=== PATIENT | female | born 1985 | race Caucasian/White ===

== ENCOUNTER 2017-12-13 18:21 | Emergency (ER) | payer SELFPAY ==
[2017-12-13 18:41] VITALS: TEMP 98.3; BMI 30.2
--- NOTE | 2017-12-13 18:44 | PDOC ---
Rapid Medical Evaluation Chief Complaint: Vaginal Bleeding Time Seen by Provider: 12/13/17 18:35 Medical Evaluation: Allergies Allergy/AdvReac Type Severity Reaction Status Date / Time ibuprofen [From Motrin] Allergy Verified 03/29/16 19:54 12/13/17 18:38 I have performed a brief in-person evaluation of this patient Patient presents with a chief complaint of vaginal bleeding in . She took a home test yesterday and found out she was . No care yet. LMP Nov 25 Also w/o lower abdominal pain Pertinent physical exam findings: NAD, unlabored breathing I have ordered the following: CBC, CMP, UA, UCG, Ucx, type and screen, transvaginal sono Patient will proceed to the ED for further medical evaluation Discharge Disposition - Diagnosis Vaginal bleeding affecting early - Referrals - Patient Instructions - Post Discharge Activity
[2017-12-13 19:37] LABS: HCG,QUALITATIVE URINE Positive
[2017-12-13 19:41] LABS: URINE APPEARANCE CLEAR; URINE BILIRUBIN NEGATIVE (<2.0 mg/dL); URINE COLOR STRAW; URINE GLUCOSE (UA) NEGATIVE (NEGATIVE); URINE KETONE NEGATIVE (NEGATIVE); URINE LEUK ESTERASE NEGATIVE (NEGATIVE); URINE NITRITE NEGATIVE (NEGATIVE); URINE PROTEIN NEGATIVE (NEGATIVE); URINE UROBILINOGEN NEGATIVE mg/dL (0.2-1.0)
[2017-12-13 19:43] LABS: EPI CELLS RARE /HPF (FEW)
--- NOTE | 2017-12-13 19:44 | PDOC ---
Attending Attestation - HPI HPI: 12/13/17 21:30 The patient is a 32 year female, , positive test presents to the emergency department with vaginal bleeding and abdominal pain. The patient presents with lower abdominal pain with small vaginal bleeding. The patient reports she bleed through 2 pads today. Denies fever, chills, dysuria, frequency or urgency to urinate. The patient reports her prior ended Allergies: Ibuprofen. Social history: No past or present use of tobacco, alcohol or recreational drug use reported. LMP: October 25, 2017. PCP: Ramya Carreon - Physicial Exam PE: 12/13/17 21:31 GENERAL: The patient is in no acute distress. HEAD: Normal with no signs of trauma. ENT: Ears normal, nares patent, oropharynx clear without exudates. Moist mucous membranes. NECK: Normal range of motion, supple without lymphadenopathy, JVD, or masses. LUNGS: Breath sounds equal, clear to auscultation bilaterally. No wheezes, and no crackles. HEART:Regular rate and rhythm, normal S1 and S2 without murmur, rub or gallop. ABDOMEN: Soft, nontender, normoactive bowel sounds. No guarding, no rebound. No masses palpable. EXTREMITIES: Normal range of motion, no edema. No clubbing or cyanosis. No erythema, or tenderness. NEUROLOGICAL: Cranial nerves II through XII grossly intact. Normal speech. No focal neurological deficits. Pelvic exam: Agree with resident. MUSCULOSKELETAL: Back non-tender to palpation, no CVA tenderness SKIN: Warm, Dry, normal turgor, no rashes or lesions noted. - Medical Decision Making 12/13/17 21:31 Documentation prepared by Ayana Horner, acting as medical management trainer for Guerline Elizabeth MD. <Ayana Horner - Last Filed: 12/13/17 21:30> - Resident Resident Name: Kemar Watson - ED Attending Attestation I have performed the following: I have examined & evaluated the patient, The case was reviewed & discussed with the resident, I agree w/resident's findings & plan, Exceptions are as noted - Medical Decision Making 12/14/17 20:04 SONO done; shows IUP with goof FH. She will be asked to follow with [facility]; no need for rhogam 12/14/17 20:07 Pt is stable for discharge <Guerline Elizabeth - Last Filed: 12/14/17 20:07>
[2017-12-13 20:25] LABS: BASO % 0.4 % (0-2.0); EOS % 0.5 % (0-4.5); HEMATOCRIT 37.8 % (32.4-45.2); HEMOGLOBIN 12.4 GM/dL (10.7-15.3); LYMPH % 31.5 % (8-40); MCH 28.7 pg (25.7-33.7); MEAN CELL VOLUME 86.9 fl (80-96); MEAN PLT VOLUME 9.2 fl (7.5-11.1); MONO % 7.7 % (3.8-10.2); NEUT % 59.9 % (42.8-82.8); PLATELET COUNT 225 K/MM3 (134-434); RBC 4.34 M/mm3 (3.60-5.2); RDW 13.8 % (11.6-15.6); WHITE BLOOD COUNT 12.1 K/mm3 (4.0-10.0)
--- NOTE | 2017-12-13 20:34 | PDOC ---
History of Present Illness - General Chief Complaint: Vaginal Bleeding Stated Complaint: VAGINAL BLEEDING Time Seen by Provider: 12/13/17 18:35 History Source: Patient Exam Limitations: No Limitations - History of Present Illness Initial Comments: 12/13/17 20:24 Patient is a 32F here today complaining of vaginal bleeding and lower abdominal pain that started today after finding out she was yesterday. LMP 10/25. Patient states she used 2 pads. Denies fevers, chills, nausea, vomiting. Patient has no OB. Denies dysuria, flank pain, prior abdominal surgeries. No constipation or diarrhea. Patient denies history of gonorrhea, chlamydia and HIV. Past History - Past Medical History Allergies/Adverse Reactions: Allergies Allergy/AdvReac Type Severity Reaction Status Date / Time ibuprofen [From Motrin] Allergy Verified 03/29/16 19:54 Home Medications: Ambulatory Orders Cephalexin [Keflex] 500 mg PO BID #10 capsule 03/29/16 Phenazopyridine HCl [Pyridium] 200 mg PO TID PRN #6 tablet 03/29/16 COPD: No - Suicide/Smoking/Psychosocial Hx Smoking History: Never smoked Review of Systems - Review of Systems Comments:: 12/13/17 20:34 GENERAL/CONSTITUTIONAL: No fever or chills. No weakness. HEAD, EYES, EARS, NOSE AND THROAT: No change in vision. No sore throat. CARDIOVASCULAR: No chest pain or shortness of breath RESPIRATORY: No cough, wheezing, or hemoptysis. GASTROINTESTINAL: No nausea, vomiting, diarrhea or constipation. GENITOURINARY: No dysuria, frequency, or change in urination. MUSCULOSKELETAL: No joint or muscle swelling or pain. No neck or back pain. SKIN: No rash NEUROLOGIC: No headache, vertigo, loss of consciousness, or change in strength/ sensation. ENDOCRINE: No increased thirst. No abnormal weight change HEMATOLOGIC/LYMPHATIC: No anemia, easy bleeding, or history of blood clots. ALLERGIC/IMMUNOLOGIC: No hives or skin allergy. *Physical Exam - Vital Signs Last Vital Signs Temp Pulse Resp BP Pulse Ox 98.3 F 56 L 18 109/64 100 12/13/17 18:34 12/13/17 18:34 12/13/17 18:34 12/13/17 18:34 12/13/17 18:34 - Physical Exam Comments: 12/13/17 20:34 GENERAL: Awake, alert, and fully oriented, in no acute distress PELVIC: Normal external genitalia, trace blood in vaginal vault, closed os, no CMT or adnexal tenderness. No masses appreciated. HEAD: No signs of trauma, normocephalic, atraumatic EYES: PERRLA, EOMI, sclera anicteric, conjunctiva clear ENT: Auricles normal inspection, hearing grossly normal, nares patent, oropharynx clear without exudates. Moist mucosa NECK: Normal ROM, supple, no lymphadenopathy, JVD, or masses LUNGS: No distress, speaks full sentences, clear to auscultation bilaterally HEART: Regular rate and rhythm, normal S1 and S2, no murmurs, rubs or gallops, peripheral pulses normal and equal bilaterally. ABDOMEN: Soft, nontender, normoactive bowel sounds. No guarding, no rebound. No masses EXTREMITIES: Normal inspection, Normal range of motion, no edema. No clubbing or cyanosis. NEUROLOGICAL: Cranial nerves II through XII grossly intact. Normal speech, normal gait, no focal sensorimotor deficits SKIN: Warm, Dry, normal turgor, no rashes or lesions noted. ED Treatment Course - LABORATORY CBC & Chemistry Diagram: 12/13/17 20:02 12/13/17 20:02 - ADDITIONAL ORDERS Additional order review: Laboratory Results 12/13/17 19:05 Urine Color Straw Urine Appearance Clear Urine pH 6.0 D Ur Specific [place] 1.006 L Urine Protein Negative Urine Glucose (UA) Negative Urine Ketones Negative Urine Blood 1+ H Urine Nitrite Negative Urine Bilirubin Negative Urine Urobilinogen Negative Ur Leukocyte Esterase Negative Urine WBC (Auto) None Urine RBC (Auto) None Ur Epithelial Cells Rare Urine HCG, Qual Positive Medical Decision Making - Medical Decision Making 12/13/17 20:35 Patient is 32F here today with vaginal bleeding. Pain is described as cramping. DDx includes, but is not limited to: , threatened ab, ectopic. Will evaluate with cbc, cmp, type and screen, tvus, beta quant. Urine preg + in triage. Likely discharge. 12/13/17 22:35 CBC normal. CMP reassuring. Blood type O+. Beta quant 10k. TVUS shows single live IUP at 6wk0d with HR of 105. Patient has threatened AB. Educated on how this may be normal part of her or the beginning of a miscarriage. Discharged with return precautions and PCP follow up. Pain has resolved. *DC/Admit/Observation/Transfer Diagnosis at time of Disposition: Vaginal bleeding affecting early , Threatened - Discharge Dispostion Disposition: HOME Condition at time of disposition: Good Decision to Admit order: No - Referrals Referrals: Ramya Carreon [Primary Care Provider] - Narendra Pond MD [Staff Physician] - [facility] [Provider Group] - Patient Instructions Printed Discharge Instructions: DI for Threatened Additional Instructions: Please follow up with OB for your . Please return if you have any new, worsening or concerning symptoms, especially pain, weakness, chest pain, and shortness of breath. - Post Discharge Activity
[2017-12-13 21:17] LABS: ALBUMIN 3.6 g/dl (3.4-5.0); ALK PHOS 78 U/L (45-117); ANION GAP 7 MMOL/L (8-16); BILIRUBIN,TOTAL 0.2 mg/dL (0.2-1); BLOOD UREA NITROGEN 11 mg/dL (7-18); CALCIUM 9.2 mg/dL (8.5-10.1); CHLORIDE 106 mmol/L (98-107); CO2 25 mmol/L (21-32); CREATININE 0.5 mg/dL (0.55-1.3); GLUCOSE,RANDOM 88 mg/dL (74-106); POTASSIUM 4.4 mmol/L (3.5-5.1); SGOT/AST 18 U/L (15-37); SGPT/ALT 26 U/L (13-61); SODIUM 137 mmol/L (136-145); TOT PROT 7.2 g/dl (6.4-8.2)
[2017-12-13 22:06] VITALS: BP 104/62; PULSE 61
== END 2017-12-13 22:44 | disposition home or self-care (01) ==
LOC: JER 18:21
DX: O26.891 Other specified pregnancy related conditions, first trimester (principal); O20.0 Threatened abortion; Z3A.01 Less than 8 weeks gestation of pregnancy
CPT/HCPCS: 36415; 76817-TC; 80053; 81003; 81015; 84702; 84703; 85025; 86850; 86900; 86901; 87086; 99283-25

== ENCOUNTER 2022-05-16 22:21 | Emergency (ER) | payer OTHER ==
[2022-05-16 22:28] VITALS: BP 125/72; PULSE 86; RESP 18; TEMP 97.9; BMI 27.0
[2022-05-16] MEDS ORDERED: METOCLOPRAMIDE HCL INJECTION 10 MG/2 ML VIAL IVPUSH ONE (23:18)
[2022-05-16] MEDS ORDERED: ACETAMINOPHEN 1000 MG/100 ML BAG IVPB ONE (23:18)
[2022-05-16] MEDS ORDERED: SODIUM CHLORIDE 0.9% 500 ML INFUS.BAG IV ONE (23:18)
[2022-05-16] MEDS ORDERED: METOCLOPRAMIDE HCL INJECTION 10 MG/2 ML VIAL ONE (23:53)
[2022-05-17 00:24] LABS: URINE APPEARANCE CLEAR; URINE BILIRUBIN NEGATIVE (NEGATIVE); URINE COLOR YELLOW; URINE GLUCOSE (UA) NEGATIVE (NEGATIVE); URINE KETONE NEGATIVE (NEGATIVE); URINE LEUK ESTERASE NEGATIVE (NEGATIVE); URINE NITRITE NEGATIVE (NEGATIVE); URINE PROTEIN NEGATIVE (NEGATIVE); URINE UROBILINOGEN 0.2 mg/dL (0.2-1.0)
[2022-05-17 00:25] LABS: BASO % 0.2 % (0-2.0); EOS % 0.4 % (0-4.5); HEMATOCRIT 36.8 % (32.4-45.2); HEMOGLOBIN 12.4 GM/dL (10.7-15.3); LYMPH % 9.7 % (8-40); MCH 28.2 pg (25.7-33.7); MCHC 33.6 g/dl (32.0-36.0); MEAN PLT VOLUME 8.4 fl (7.5-11.1); MONO % 6.8 % (3.8-10.2); NEUT % 82.9 % (42.8-82.8); PLATELET COUNT 224 10^3/uL (134-434); RBC 4.38 M/mm3 (3.60-5.2); RDW 13.7 % (11.6-15.6); WHITE BLOOD COUNT 9.1 K/mm3 (4.0-10.0)
[2022-05-17] MEDS ORDERED: ACETAMINOPHEN INJECTION 100 ML IVPB ONE (00:54)
[2022-05-17 01:25] LABS: ALBUMIN 3.1 g/dl (3.4-5.0); CALCIUM 8.4 mg/dL (8.5-10.1)
[2022-05-17 01:26] LABS: BLOOD UREA NITROGEN 8.6 mg/dL (7-18)
[2022-05-17 01:28] LABS: CREATININE 0.5 mg/dL (0.55-1.3)
[2022-05-17 01:30] LABS: BILIRUBIN,TOTAL 0.2 mg/dL (0.2-1); TOT PROT 6.8 g/dl (6.4-8.2)
[2022-05-17] MEDS ORDERED: methylPREDNISolone NA SUCC 125 MG/2 ML VIAL IVPUSH ONE (02:05)
[2022-05-17] MEDS ORDERED: methylPREDNISolone NA SUCC 125 MG/2 ML VIAL ONE (02:08)
== END 2022-05-17 03:10 | disposition home or self-care (01) ==
LOC: JER 22:21
PROC: 3E033NZ Introduction of Analgesics, Hypnotics, Sedatives into Peripheral Vein, Percutaneous Approach (ICD-10-PCS; principal; 2022-05-16)
DX: O26.891 Other specified pregnancy related conditions, first trimester (principal); R51.9 Headache, unspecified; Z3A.13 13 weeks gestation of pregnancy
CPT/HCPCS: 36415; 70450-TC; 70496-TC; 80053; 81003; 85025; 87086; 99284-25; Q9967

== ENCOUNTER 2022-07-01 19:24 | Emergency (ER) | payer OTHER ==
[2022-07-01 19:36] VITALS: BMI 24.5
[2022-07-01] MEDS ORDERED: ONDANSETRON 4 MG/2 ML VIAL IVPUSH ONE (19:56)
[2022-07-01] MEDS ORDERED: SODIUM CHLORIDE 0.9% 500 ML INFUS.BAG IV ONE (19:56)
[2022-07-01] MEDS ORDERED: ONDANSETRON 4 MG/2 ML VIAL ONE (20:13)
[2022-07-01 20:37] LABS: BASO % 0.2 % (0-2.0); EOS % 0.1 % (0-4.5); HEMATOCRIT 32.5 % (32.4-45.2); HEMOGLOBIN 11.3 GM/dL (10.7-15.3); MCH 29.7 pg (25.7-33.7); MCHC 34.8 g/dl (32.0-36.0); MEAN CELL VOLUME 85.6 fl (80-96); MEAN PLT VOLUME 8.3 fl (7.5-11.1); MONO % 3.8 % (3.8-10.2); NEUT % 81.9 % (42.8-82.8); PLATELET COUNT 221 10^3/uL (134-434); RDW 14.5 % (11.6-15.6); WHITE BLOOD COUNT 9.5 K/mm3 (4.0-10.0)
[2022-07-01 21:01] LABS: ALBUMIN 2.8 g/dl (3.4-5.0); BLOOD UREA NITROGEN 11.8 mg/dL (7-18); CALCIUM 8.9 mg/dL (8.5-10.1)
[2022-07-01 21:04] LABS: CREATININE 0.5 mg/dL (0.55-1.3)
[2022-07-01 21:06] LABS: BILIRUBIN,TOTAL 0.2 mg/dL (0.2-1); TOT PROT 6.3 g/dl (6.4-8.2)
[2022-07-01 22:56] VITALS: BP 103/55; PULSE 59; RESP 20; TEMP 97.7
== END 2022-07-01 22:45 | disposition home or self-care (01) ==
LOC: JER 19:24
PROC: 3E033NZ Introduction of Analgesics, Hypnotics, Sedatives into Peripheral Vein, Percutaneous Approach (ICD-10-PCS; principal; 2022-07-01)
DX: O99.352 Diseases of the nervous system complicating pregnancy, second trimester (principal); R51.9 Headache, unspecified; O21.9 Vomiting of pregnancy, unspecified; Z3A.20 20 weeks gestation of pregnancy; Z20.822 Contact with and (suspected) exposure to COVID-19
CPT/HCPCS: 0241U-QW; 36415; 80053; 83690; 85025; 99284-25

== ENCOUNTER 2022-11-16 03:40 | Inpatient (IN) | payer OTHER ==
[2022-11-16] MEDS: ELECTROLYTE-148 SOLN 1,000 ML IV SCH ×2 (06:00→11:00)
[2022-11-16 06:50] LABS: INR 0.9 (0.83-1.09); PROTHROMBIN TIME (PATIENT) 10.4 SEC (9.7-13.0)
[2022-11-16 06:53] LABS: BASO % 0.2 % (0-2.0); EOS % 0.3 % (0-4.5); HEMATOCRIT 33.4 % (32.4-45.2); HEMOGLOBIN 11.4 GM/dL (10.7-15.3); LYMPH % 28.3 % (8-40); MCH 29.1 pg (25.7-33.7); MEAN CELL VOLUME 85.6 fl (80-96); MEAN PLT VOLUME 8.7 fl (7.5-11.1); MONO % 8.1 % (3.8-10.2); NEUT % 63.1 % (42.8-82.8); PLATELET COUNT 208 10^3/uL (134-434); RDW 15.2 % (11.6-15.6); WHITE BLOOD COUNT 9.3 K/mm3 (4.0-10.0)
[2022-11-16 07:25] LABS: POTASSIUM 4.5 mmol/L (3.5-5.1)
[2022-11-16 07:26] LABS: CALCIUM 8.1 mg/dL (8.5-10.1)
[2022-11-16 07:27] VITALS: BMI 33.4
[2022-11-16 07:27] LABS: BLOOD UREA NITROGEN 10.8 mg/dL (7-18)
[2022-11-16 07:30] LABS: CREATININE 0.6 mg/dL (0.55-1.3)
[2022-11-16 09:33] LABS: RETICULOCYTES 1.86 % (0.5-1.5)
[2022-11-16] MEDS ORDERED: ACETAMINOPHEN 325 MG TABLET (FP) PO PRN (10:56)
[2022-11-16] MEDS ORDERED: CITRIC ACID/SODIUM CITRATE 30 ML UNIT-DOSE CUP PO ONE (11:00)
[2022-11-16 11:09] LABS: URIC ACID 3.4 mg/dL (2.6-7.2)
[2022-11-16] MEDS ORDERED: morphine SULFATE/PF 1 MG/2 ML (2cc Syringe - QUVA) ONE (11:21)
[2022-11-16] MEDS ORDERED: FENTANYL CITRATE/PF 50 MCG/ML VIAL ONE (11:21)
[2022-11-16] MEDS ORDERED: morphine SULFATE/PF 1 MG/2 ML (2cc Syringe - QUVA) EP ONE (11:35)
[2022-11-16] MEDS ORDERED: OXYTOCIN 10 UNITS/ML VIAL ONE (12:17)
[2022-11-16] MEDS ORDERED: ceFAZolin SODIUM 1 GM VIAL ONE (12:17)
[2022-11-16] MEDS ORDERED: ONDANSETRON 4 MG/2 ML VIAL ONE (12:17)
[2022-11-16] MEDS ORDERED: OXYTOCIN 20 UNITS in 0.9% NS 20 UNIT/1,000 ML INFUS.BAG IV ONE (12:37)
[2022-11-16] MEDS: OXYTOCIN 20 UNITS in 0.9% NS 20 UNIT/1,000 ML INFUS.BAG IV SCH ×2 (12:40→21:12)
[2022-11-16 12:41] LABS: VENOUS BASE EXCESS -3.8 mmol/L (-2-2); VENOUS PCO2 57.7 mmHg (38-52); VENOUS PH 7.245 (7.310-7.410)
[2022-11-16 12:47] LABS: ARTERIAL BLOOD GAS BASE EXCESS -5.4 mmol/L (-2-2)
[2022-11-16 12:54] LABS: ARTERIAL BLOOD GAS pH 7.127 (7.350-7.450)
[2022-11-16] MEDS ORDERED: ACETAMINOPHEN 1000 MG/100 ML BAG IVPB ONE (13:45)
[2022-11-16] MEDS ORDERED: ACETAMINOPHEN INJECTION 100 ML IVPB ONE (13:50)
[2022-11-16] MEDS ORDERED: ONDANSETRON 4 MG/2 ML VIAL IVPUSH PRN (17:12)
[2022-11-16] MEDS ORDERED: oxyCODONE HCL 5 MG TABLET PO ONE (17:13)
[2022-11-16] MEDS: ACETAMINOPHEN 1000 MG/100 ML BAG IVPB SCH (20:21)
[2022-11-17] MEDS: oxyCODONE HCL 5 MG TABLET PO PRN ×3 (00:25→17:51)
[2022-11-17] MEDS: SIMETHICONE 80 MG TAB.CHEW (FP) PO PRN ×2 (00:26→17:51)
[2022-11-17] MEDS: ACETAMINOPHEN 1000 MG/100 ML BAG IVPB SCH ×4 (01:38→21:04)
[2022-11-17 06:52] LABS: BASO % 0.3 % (0-2.0); EOS % 0.1 % (0-4.5); HEMATOCRIT 28.2 % (32.4-45.2); HEMOGLOBIN 9.4 GM/dL (10.7-15.3); LYMPH % 22.8 % (8-40); MCHC 33.3 g/dl (32.0-36.0); MEAN CELL VOLUME 87.3 fl (80-96); MEAN PLT VOLUME 9.3 fl (7.5-11.1); MONO % 8.1 % (3.8-10.2); NEUT % 68.7 % (42.8-82.8); PLATELET COUNT 186 10^3/uL (134-434); RBC 3.23 M/mm3 (3.60-5.2)
[2022-11-17] MEDS ORDERED: BISACODYL 10 MG SUPP.RECT RC PRN (10:56)
[2022-11-18] MEDS: SIMETHICONE 80 MG TAB.CHEW (FP) PO PRN ×3 (04:57→20:29)
[2022-11-18] MEDS: oxyCODONE HCL 5 MG TABLET PO PRN ×2 (04:58→20:32)
[2022-11-18] MEDS: ACETAMINOPHEN 325 MG TABLET (FP) PO PRN ×2 (08:22→15:34)
[2022-11-19] MEDS: ACETAMINOPHEN 325 MG TABLET (FP) PO PRN ×2 (04:59→10:31)
[2022-11-19 08:45] LABS: BASO % 0.3 % (0-2.0); EOS % 1.2 % (0-4.5); HEMATOCRIT 27.6 % (32.4-45.2); HEMOGLOBIN 9.2 GM/dL (10.7-15.3); LYMPH % 24.5 % (8-40); MCH 28.8 pg (25.7-33.7); MCHC 33.3 g/dl (32.0-36.0); MEAN CELL VOLUME 86.5 fl (80-96); MEAN PLT VOLUME 8.5 fl (7.5-11.1); MONO % 8.8 % (3.8-10.2); NEUT % 65.2 % (42.8-82.8); PLATELET COUNT 214 10^3/uL (134-434); RBC 3.19 M/mm3 (3.60-5.2); RDW 15.9 % (11.6-15.6); WHITE BLOOD COUNT 8.7 K/mm3 (4.0-10.0)
[2022-11-19 11:25] VITALS: BP 108/72; PULSE 74; RESP 17; TEMP 98.1
== END 2022-11-19 12:50 | disposition home or self-care (01) | DRG 540 ==
LOC: JDEL 03:40 → JLDR 05:45 → J3W 14:35
PROVIDERS: ADMIT Obstetrics & Gynecology; ATTEND Obstetrics & Gynecology
PROC: 10D00Z1 Extraction of Products of Conception, Low, Open Approach (ICD-10-PCS; principal; 2022-11-16)
DX: O48.0 Post-term pregnancy (principal); O34.219 Maternal care for unspecified type scar from previous cesarean delivery; Z3A.40 40 weeks gestation of pregnancy; Z37.0 Single live birth
CPT/HCPCS: 36415; 36600; 80048; 82803; 82977; 83010; 84450; 84460; 84550; 85025; 85032; 85045; 85610; 85730; 86780; 86850; 86900; 86901; 88307-TC; 94010

== ENCOUNTER 2023-01-28 19:20 | Emergency (ER) | payer OTHER ==
[2023-01-28 19:44] VITALS: RESP 18; BMI 28.5
[2023-01-28] MEDS ORDERED: METOCLOPRAMIDE HCL INJECTION 10 MG/2 ML VIAL IVPUSH ONE (20:26)
[2023-01-28] MEDS ORDERED: SODIUM CHLORIDE 1,000 ML IV STA (20:27)
[2023-01-28] MEDS ORDERED: METOCLOPRAMIDE HCL INJECTION 10 MG/2 ML VIAL ONE (20:30)
[2023-01-28] MEDS ORDERED: PROCHLORPERAZINE INJECTION 10 MG/2 ML VIAL IVPB ONE (21:36)
[2023-01-28] MEDS ORDERED: ACETAMINOPHEN INJECTION 100 ML IVPB ONE (21:43)
[2023-01-28] MEDS ORDERED: ACETAMINOPHEN 1000 MG/100 ML BAG IVPB ONE (22:00)
[2023-01-28 23:03] LABS: PH,URINE 5.5 (5.0-8.0); URINE APPEARANCE CLEAR; URINE BILIRUBIN NEGATIVE (NEGATIVE); URINE COLOR YELLOW; URINE GLUCOSE (UA) NEGATIVE (NEGATIVE); URINE KETONE NEGATIVE (NEGATIVE); URINE LEUK ESTERASE NEGATIVE (NEGATIVE); URINE NITRITE NEGATIVE (NEGATIVE); URINE PROTEIN NEGATIVE (NEGATIVE); URINE UROBILINOGEN 0.2 mg/dL (0.2-1.0)
[2023-01-29 00:58] VITALS: BP 124/95; PULSE 73; TEMP 97.6
== END 2023-01-29 01:09 | disposition home or self-care (01) ==
LOC: JER 19:20
PROC: 3E033NZ Introduction of Analgesics, Hypnotics, Sedatives into Peripheral Vein, Percutaneous Approach (ICD-10-PCS; principal; 2023-01-28)
PROC: 3E033GC Introduction of Other Therapeutic Substance into Peripheral Vein, Percutaneous Approach (ICD-10-PCS; 2023-01-28)
PROC: 3E0337Z Introduction of Electrolytic and Water Balance Substance into Peripheral Vein, Percutaneous Approach (ICD-10-PCS; 2023-01-28)
DX: R51.9 Headache, unspecified (principal); Z20.822 Contact with and (suspected) exposure to COVID-19
CPT/HCPCS: 0241U-QW; 81003; 87086; 96361; 96374; 96375; 99284-25